=== PATIENT | male | born 1990 | race Two or more races ===

== ENCOUNTER → 2017-10-18 | Outpatient (REF) | payer OTHER | LOC: M SFHCLERA 12:21 | DX: J02.9 Acute pharyngitis, unspecified (principal) ==

== ENCOUNTER → 2019-07-18 | Outpatient (CLI) | payer OTHER ==
[~2019-07-18] MED LIST: MULTTAB86 PO; NORC1TAB7 PO
== END ==
LOC: M LABSMTC 08:13
PROVIDERS: ATTEND Anesthesiology
DX: Z01.818 Encounter for other preprocedural examination (principal); Z11.59 Encounter for screening for other viral diseases
CPT/HCPCS: C9803; U0003

== ENCOUNTER 2019-07-21 07:50 | Day surgery (SDC) | payer OTHER ==
[~2019-07-21] VITALS: Ht 182.9 cm; Wt 83.9 kg
[~2019-07-21 07:50] MED LIST changes: +LIDOCAINE 1% MDV 20ML VIAL SQ PRN; +LR 1,000 ML IV ONE; -NORC1TAB7 PO
[2019-07-21] MEDS ORDERED: MIDAZOLAM INJ 2MG/2ML VIAL (J2250 PER 1MG) As Ordered ONE (09:59)
[2019-07-21] MEDS ORDERED: HYDROmorphone HCL 2 MG/ML 1ML VIAL (J1170) As Ordered ONE (09:59)
[2019-07-21] MEDS ORDERED: fentaNYL 100 MCG/2 ML INJECTION (J3010) As Ordered ONE (09:59)
[2019-07-21] MEDS ORDERED: dexameTHASONE 4 MG/ML 1ML VIAL (J1100 PER 1MG) As Ordered ONE (10:03)
[2019-07-21] MEDS ORDERED: LIDOCAINE 2% 100MG/5ML SDV (FOR ANES.) As Ordered ONE (10:03)
[2019-07-21] MEDS ORDERED: ONDANSETRON 4MG/2ML VIAL As Ordered ONE ×2 (10:03→12:26)
[2019-07-21] MEDS ORDERED: propofoL 200 MG/20 ML VIAL As Ordered ONE (10:03)
[2019-07-21] MEDS ORDERED: ROCURONIUM BROMIDE 50 MG/5 ML VIAL As Ordered ONE ×2 (10:03→12:36)
[2019-07-21] MEDS ORDERED: PHENYLephrine HCL 500 MCG/5 ML (100MCG/ML) SYRINGE (J2370) As Ordered ONE (11:22)
[2019-07-21] MEDS ORDERED: BUPIVACAINE HCL 0.25% 30ML VIAL As Ordered ONE (11:52)
[2019-07-21] MEDS ORDERED: ACETAMINOPHEN 1000MG 100ML IV BTL (OFIRMEV) (J0131 PER 10MG) As Ordered ONE (12:23)
[2019-07-21] MEDS ORDERED: KETOROLAC 60 MG/2 ML VIAL As Ordered ONE (12:26)
[2019-07-21] MEDS ORDERED: SUGAMMADEX SODIUM 500 MG/5 ML VIAL (BRIDION) As Ordered ONE (12:26)
[2019-07-21] MEDS ORDERED: NORCO, ANEXSIA 5/325MG TABLET (HYDROcodone/ACETAMINOPHEN) PO PRN (14:30)
[2019-07-21] MEDS ORDERED: MORPHINE 2 MG/ML 1ML VIAL (J2270) IV PRN (14:30)
[2019-07-21] MEDS ORDERED: fentaNYL 100 MCG/2 ML INJECTION (J3010) IV PRN (14:30)
[2019-07-21] MEDS ORDERED: ACETAMINOPHEN TAB 650MG DOSE (2X325MG) PO PRN (14:30)
[2019-07-21] MEDS ORDERED: PERCOCET 5MG/325MG TAB PO PRN (14:30)
[2019-07-21] MEDS ORDERED: ONDANSETRON 4MG/2ML VIAL IV PRN (14:30)
[2019-07-21] MEDS ORDERED: LR 1,000 ML IV SCH (14:30)
[2019-07-21] MEDS ORDERED: METOCLOPRAMIDE INJ 10MG/2ML VIAL (J2765 PER 1) IV PRN (14:30)
[2019-07-21] MEDS ORDERED: NORC1TAB7 PO (16:11)
[2019-07-21 16:16] VITALS: BP 135/68
[2019-07-21] MEDS ORDERED: ONDANSETRON 4 MG ORAL DISINTEGRATING TAB As Ordered ONE (16:36)
[2019-07-21] MEDS ORDERED: ONDANSETRON 4 MG ORAL DISINTEGRATING TAB PO ONE (16:45)
[2019-07-21] MEDS ORDERED: IBUPROFEN 600 MG TAB PO PRN (20:00)
--- NOTE | 2019-07-25 13:29 | RO ---
DATE OF PROCEDURE: 07/21/2019 PREOPERATIVE DIAGNOSIS: Left inguinal hernia. POSTOPERATIVE DIAGNOSIS: Left inguinal hernia. PROCEDURE PERFORMED: Robotic-assisted laparoscopic left inguinal herniorrhaphy with mesh. SURGEON: Dr. Paniagua CODING SPECIALIST HOME HEALTH: Lashon Miranda NP whose assistance was required for placement of the trocars, management of the robotic instruments with instrument changes as well as passage of sutures and the mesh, and closure of the wounds. ANESTHESIA: General. The mesh utilized was a [employer] ProGrip reference code [id number], lot number [id number]. INDICATIONS FOR THE PROCEDURE: Patient is a pleasant 28-year-old man who has noticed a bulge in the left inguinal area. Examination confirmed a reducible left inguinal hernia. He is now for a robotic-assisted laparoscopic repair. OPERATIVE PROCEDURE: The patient was brought to the operating room and placed on the table in a supine position. He was placed under general endotracheal anesthesia. The patient's abdomen was prepped and draped in a sterile fashion. 0.25% Marcaine was infiltrated at each of the trocar sites. A short transverse incision was made approximately 3-4 cm above the umbilicus. A Veress needle was inserted and after positive hanging drop test the abdomen was insufflated with carbon dioxide gas. An 8-mm port was placed over 5-mm scope and advanced to the abdominal wall without difficulty. Initial examination showed no evidence of Veress needle or trocar injury. He was noted to have a hernia in the left inguinal area, which appeared to be an indirect hernia. There was a very small shallow dimple in the right inguinal region. The liver and visualized portions of the small and large bowel appeared . A second 8 mm port was placed in the right upper quadrant and a third was placed in left upper quadrant. The patient was placed into a 15 degree Trendelenburg position. The patient cart of the Beatriz Xi robot was brought into position and the camera port was docked. The camera was inserted and targeting took place in the pelvis. The additional robotic arms were docked leaving the arm #4 undocked. A Force bipolar and cauterizing scissors were inserted. I then moved to the control console to proceed with the surgery. An arcuate incision was made in the peritoneum overlying the inguinal floor. This began at the medial umbilical ligament and extended laterally and inferior toward the anterior-superior iliac spine. A flap was created by dissecting through the preperitoneal tissues. The hernia sac was inverted into the abdomen as it was peeled away from the underlying cord structures, which were preserved. The hernia was clearly an indirect hernia. After completely freeing the flap and creating adequate space for placement of mesh, a [employer]ien ProGrip mesh 10 x 15 cm was slightly trimmed at the corners and then folded and inserted into the abdomen. This was placed into the preperitoneal space and then unfolded and gently pressed into the tissues of the abdominal wall. This appeared to nicely hold the mesh in place, nicely centered over the hernia defect. The peritoneal flap was then closed with a running #2-0 V-Loc suture. As the closure neared completion, the patient was returned to a flat position and the abdominal pressure was lowered to 8 mmHg. The closure of the peritoneal flap was completed. While closing the flap, the redundant peritoneum of the hernia sac was folded up onto the abdominal wall and sutured in place as part of the closure. The robotic instruments were removed. The robot was undocked. The abdomen was deflated and the ports were all removed. Lashon Miranda then proceeded with closure of the skin incisions with buried #4-0 Vicryl and Steri-Strips. Light dressings were applied. The patient tolerated the procedure well without apparent complication. He was awakened in the operating room, extubated and moved to the recovery room in stable condition.
== END 2019-07-21 17:09 | disposition home or self-care (01) ==
LOC: M SDC 07:50
PROVIDERS: ATTEND Surgery
DX: K40.90 Unilateral inguinal hernia, without obstruction or gangrene, not specified as recurrent (principal); Z88.2 Allergy status to sulfonamides
CPT/HCPCS: 49650; C1781; J0131; J1100; J1170; J1885; J2250; J2370; J2405; J3010; Q0162

== ENCOUNTER → 2023-07-04 | Outpatient (REF) | payer OTHER ==
[~2023-07-04] MED LIST changes: -LIDOCAINE 1% MDV 20ML VIAL SQ PRN; -LR 1,000 ML IV ONE; +NORC1TAB7 PO
== END ==
LOC: M LAB REF 17:22
PROVIDERS: ATTEND Surgery
DX: L90.5 Scar conditions and fibrosis of skin (principal)